=== PATIENT | male | born 1960 | race Asian ===

== ENCOUNTER 2016-08-08 05:05 | Emergency (ER) | payer OTHER ==
[2016-08-08] MEDS ORDERED: CEPHALEXIN 500 MG CAPSULE ONE (05:28)
[2016-08-08] MEDS ORDERED: SULFAMETHOXAZOLE 800 MG/TRIMETHOPRIM 160 MG TABLET ONE (05:28)
== END 2016-08-08 05:35 | disposition home or self-care (01) ==
LOC: ED 05:05
DX: L03.011 Cellulitis of right finger (principal)
CPT/HCPCS: 99283 ×2; A9270 ×2